=== PATIENT | male | born 1935 | race African-American/Black ===

== ENCOUNTER 2021-06-30 13:35 | Emergency (ER) | payer OTHER ==
[~2021-06-30] VITALS: Ht 182.9 cm; Wt 91.0 kg
[2021-06-30] MEDS ORDERED: SODIUM CHLORIDE 0.9% 1000ML BAG (SEPSIS BOLUS) IV ONE (14:00)
[2021-06-30 14:49] LABS: BASOPHILS % 0.3 % (0.0-2.0); EOSINOPHILS % 2.1 % (0.0-5.0); HEMATOCRIT. 33.8 % (42.0-52.0); HEMOGLOBIN. 10.8 g/dL (14.0-18.0); LYMPHOCYTES % 20.8 % (20.0-50.0); MEAN CORPUSCULAR VOLUME 75.1 fL (80.0-94.0); MEAN PLATELET VOLUME 7.7 fl (7.4-10.4); MONOCYTES % 5.5 % (2.0-8.0); NEUTROPHILS % 71.3 % (40.0-76.0); PLATELET 382 x1000/uL (130-400); RED CELL DISTRIBUTION WIDTH 13.9 % (11.6-14.6)
[2021-06-30 14:55] LABS: CHLORIDE 108 mEq/L (98-107)
[2021-06-30 14:59] LABS: ETHANOL BLOOD < 10 mg/dL
[2021-06-30] MEDS ORDERED: CEFTRIAXONE 1 G PREMIX 50 ML IV ONE (16:30)
[2021-06-30 18:54] LABS: CLARITY URINE CLEAR (CLEAR); COLOR URINE YELLOW (YELLOW); KETONES URINE NEGATIVE (NEGATIVE); LEUKOCYTE ESTERASE URINE NEGATIVE (NEGATIVE); NITRITE URINE NEGATIVE (NEGATIVE); OCCULT BLOOD URINE NEGATIVE (NEGATIVE); PH URINE 5.5 (4.5-8.0); PROTEIN URINE NEGATIVE (NEGATIVE); SPECIFIC GRAVITY URINE 1.019 (1.005-1.030)
[2021-06-30 19:20] LABS: *AMPHETAMINES SCREEN URINE NEGATIVE (NEGATIVE); *BARBITURATES SCREEN URINE NEGATIVE (NEGATIVE); *BENZODIAZEPINES SCREEN URINE NEGATIVE (NEGATIVE); *COCAINE SCREEN URINE NEGATIVE (NEGATIVE); METHADONE URINE SCREEN NEGATIVE (NEGATIVE)
[2021-06-30 19:21] LABS: CANNABINOID URINE SCREEN NEGATIVE (NEGATIVE); OPIATES URINE SCREEN NEGATIVE (NEGATIVE); PHENCYCLIDINE URINE SCREEN NEGATIVE (NEGATIVE)
[2021-06-30 20:10] VITALS: BP 132/69
== END 2021-06-30 20:25 | disposition short-term general hospital (02) ==
LOC: ER 14:02
DX: A41.9 Sepsis, unspecified organism (principal); R65.20 Severe sepsis without septic shock; T40.2X1A Poisoning by other opioids, accidental (unintentional), initial encounter; E11.9 Type 2 diabetes mellitus without complications; I10 Essential (primary) hypertension; R41.82 Altered mental status, unspecified; Z20.822 Contact with and (suspected) exposure to COVID-19; Y92.9 Unspecified place or not applicable
CPT/HCPCS: 36415; 70450; 71045; 80053; 80305; 80320; 81003; 83605; 84145; 84484; 85025; 87040; 87086; 87426; 93005; 96361; 96365; 96366; 99291; J0696; J7030; G0480

== ENCOUNTER 2024-03-09 08:41 | Inpatient (IN) | payer OTHER ==
[~2024-03-09] VITALS: Ht 175.3 cm; Wt 67.1 kg
[2024-03-09 09:05] VITALS: PULSE 106; RESP 20; O2SAT 94
[2024-03-09] MEDS: ALBUTEROL (0.083%) 2.5MG/3ML NEB HHN SCH (09:05)
[2024-03-09 09:15] LABS: BASOPHILS % 0.5 % (0.0-2.0); DIFFERENTIAL COMMENT 0; EOSINOPHILS % 2.1 % (0.0-5.0); HEMATOCRIT. 38.4 % (42.0-52.0); HEMOGLOBIN. 12.4 g/dL (14.0-18.0); LYMPHOCYTES % 47.7 % (20.0-50.0); MEAN CORPUSCULAR HEMOGLOBIN 24.2 pg (28.0-32.0); MEAN CORPUSCULAR HGB CONC 32.2 g/dL (31.0-37.0); MEAN CORPUSCULAR VOLUME 75.1 fL (80.0-94.0); MEAN PLATELET VOLUME 8.6 fl (7.4-10.4); MONOCYTES % 7.1 % (2.0-8.0); NEUTROPHILS % 42.6 % (40.0-76.0); PLATELET 210 x1000/uL (130-400); RED CELL DISTRIBUTION WIDTH 14.7 % (11.6-14.6); WHITE BLOOD COUNT 5.2 x1000/uL (4.5-11.0)
[2024-03-09] MEDS: METHYLPREDNISOLONE SOD SUCC 125MG/2ML (ACT-O-VIAL) IV STA (09:16)
[2024-03-09] MEDS: MAGNESIUM 2 G PREMIX 50 ML IV ONE (09:16)
[2024-03-09 09:25] LABS: PARTIAL THROMBOPLASTIN TIME 27.8 sec (23.4-31.0); PROTHROMBIN TIME 11.1 sec (9.6-11.0)
[2024-03-09 10:02] LABS: TROPONIN I HIGH SENSITIVITY 96 ng/L (3.0-53)
[2024-03-09 10:38] LABS: CHLORIDE 108 mEq/L (98-107); POTASSIUM 3.7 mEq/L (3.5-5.1); SODIUM 141 mEq/L (136-145)
[2024-03-09 10:39] LABS: CARBON DIOXIDE 22 mEq/L (21-32)
[2024-03-09 10:44] LABS: GLUCOSE 124 mg/dL (70-105); UREA NITROGEN BLOOD 18 mg/dL (9-23)
[2024-03-09 10:46] LABS: ALANINE AMINOTRANSFERASE 43 IU/L (10-49); ASPARTATE AMINOTRANSFERASE 47 IU/L (<34); BILIRUBIN TOTAL 0.6 mg/dL (0.1-1.0); PROTEIN TOTAL 7.1 g/dL (6.0-8.3)
[2024-03-09 11:02] LABS: CALCIUM 10.9 mg/dL (8.7-10.4)
[2024-03-09] MEDS: ENOXAPARIN 60MG/0.6ML SYR SUBCUT SCH (11:45)
[2024-03-09] MEDS: ASPIRIN 325MG EC TABLET PO NR (11:47)
[2024-03-09] MEDS: CALCIUM GLUCONATE 1GM PREMIX 50 ML IV NR (11:49)
[2024-03-09] MEDS: IPRATROPIUM BROMIDE (0.02%) 0.5MG/2.5ML NEB HHN STA (12:00)
[2024-03-09 14:30] VITALS: BP 104/68; PULSE 71; RESP 18; TEMP 97.5
[2024-03-09 16:30] VITALS: BP 104/68; PULSE 71; RESP 18; TEMP 97.5
[2024-03-09 20:00] VITALS: BP 136/81; PULSE 100; RESP 18; TEMP 97.9
[2024-03-09] MEDS ORDERED: ACETAMINOPHEN 325MG TABLET PO PRN (20:00)
[2024-03-09] MEDS ORDERED: IPRATROPIUM/ALBUTEROL 0.5-3(2.5)MG/3ML NEB HHN PRN (20:00)
[2024-03-09] MEDS: BLOOD SUGAR DIAGNOSTIC STRIP TEST SCH (21:03)
[2024-03-09] MEDS: ATORVASTATIN CALCIUM 40MG TABLET PO SCH (21:05)
[2024-03-09] MEDS: INSULIN LISPRO 100 UNITS/ML SUBCUT SCH (21:06)
[2024-03-10] VITALS (9 sets, daily range): BP systolic 117–140; BP diastolic 77–99; PULSE 70–104; RESP 16–35; TEMP 96.3–97.8
[2024-03-10] MEDS: LOSARTAN 50 MG TABLET PO SCH (06:28)
[2024-03-10 06:35] LABS: BASOPHILS % 0.1 % (0.0-2.0); DIFFERENTIAL COMMENT 0; HEMATOCRIT. 34.4 % (42.0-52.0); HEMOGLOBIN. 11.1 g/dL (14.0-18.0); LYMPHOCYTES % 9.1 % (20.0-50.0); MEAN CORPUSCULAR HGB CONC 32.4 g/dL (31.0-37.0); MEAN CORPUSCULAR VOLUME 74.1 fL (80.0-94.0); MEAN PLATELET VOLUME 9.5 fl (7.4-10.4); NEUTROPHILS % 82.8 % (40.0-76.0); PLATELET 202 x1000/uL (130-400); RED BLOOD CELL COUNT 4.64 mill/uL (4.7-6.1); RED CELL DISTRIBUTION WIDTH 14.5 % (11.6-14.6)
[2024-03-10 07:06] LABS: CARBON DIOXIDE 21 mEq/L (21-32); CHLORIDE 107 mEq/L (98-107); POTASSIUM 4.6 mEq/L (3.5-5.1); SODIUM 137 mEq/L (136-145)
[2024-03-10 07:07] LABS: CALCIUM 10.5 mg/dL (8.7-10.4)
[2024-03-10 07:12] LABS: CREATININE 1.1 mg/dL (0.6-1.3); GLUCOSE 118 mg/dL (70-105); TRIGLYCERIDE 55 mg/dL (0-150); UREA NITROGEN BLOOD 25 mg/dL (9-23)
[2024-03-10 07:13] LABS: CHOLESTEROL 112 mg/dL (<200); LDL CHOLESTEROL 71 mg/dL (5-100)
[2024-03-10 07:14] LABS: HDL CHOLESTEROL 41 mg/dL (>55)
[2024-03-10 08:22] LABS: TROPONIN I HIGH SENSITIVITY 379 ng/L (3.0-53)
[2024-03-10] MEDS: ASPIRIN 81MG TABLET PO SCH (08:28)
[2024-03-10] MEDS: ENOXAPARIN 40MG/0.4ML SYR SUBCUT SCH (08:32)
[2024-03-10] MEDS: METOPROLOL TARTRATE 50MG TABLET PO SCH (08:33)
[2024-03-10] MEDS: ISOSORBIDE MONONITRATE 30MG TABLET SR 24HR PO SCH (08:33)
[2024-03-10] MEDS: LACTULOSE 20G/30ML UDC PO NR (14:37)
[2024-03-10] MEDS ORDERED: MAGNESIUM/ALUMINUM HYDROXIDE/SIMETHICONE 30ML UDC PO PRN (17:30)
[2024-03-10] MEDS ORDERED: ONDANSETRON HCL 4MG/2ML INJ IV PRN (17:30)
[2024-03-10] MEDS ORDERED: CLONIDINE 0.1MG TABLET PO PRN (17:30)
[2024-03-10] MEDS ORDERED: HYDROCODONE/ACETAMINOPHEN 5/325MG TABLET PO PRN (17:30)
[2024-03-10] MEDS ORDERED: NALOXONE HCL 0.4MG/ML VIAL IV PRN (17:30)
[2024-03-10] MEDS ORDERED: SENNOSIDES/DOCUSATE SOD 8.6/50MG TABLET PO PRN (21:00)
[2024-03-10] MEDS: IPRATROPIUM/ALBUTEROL 0.5-3(2.5)MG/3ML NEB HHN PRN (21:50)
[2024-03-10 22:04] LABS: BG BASE EXCESS -10.4 mmol/L (-2.0-2.0); BG CARBOXYHEMOGLOBIN 0.3 % (0.5-1.5); BG DEOXYHEMOGLOBIN 17.4 % (0.0-5.0); BG FRACTION INSPIRED OXYGEN 100; BG HCO3 ACT 17.2 mmol/L (22.0-26.0); BG METHEMOGLOBIN 0.3 % (0.0-1.5); BG OXYGEN SATURATION 82.5 % (92.0-98.5); BG PCO2 44.3 mmHg (35.0-45.0); BG PH 7.207 (7.350-7.450); BG PO2 57.4 mmHg (75.0-100.0); BG SAMPLE SITE RIGHT BRACHIAL; BG TOTAL HEMOGLOBIN 12.7 g/dL (12.0-18.0); BG VENT MODE MASK - NRB
[2024-03-10] MEDS: FUROSEMIDE 40MG/4ML VIAL IVP NR (23:10)
[2024-03-10] MEDS ORDERED: IPRATROPIUM/ALBUTEROL 0.5-3(2.5)MG/3ML NEB HHN PRN (23:15)
[2024-03-10 23:49] LABS: BASOPHILS % 0.3 % (0.0-2.0); DIFFERENTIAL COMMENT 0; EOSINOPHILS % 0.3 % (0.0-5.0); HEMATOCRIT. 39.4 % (42.0-52.0); LYMPHOCYTES % 16.1 % (20.0-50.0); MEAN CORPUSCULAR HEMOGLOBIN 24.3 pg (28.0-32.0); MEAN CORPUSCULAR HGB CONC 30.5 g/dL (31.0-37.0); MEAN CORPUSCULAR VOLUME 79.7 fL (80.0-94.0); MEAN PLATELET VOLUME 9.3 fl (7.4-10.4); MONOCYTES % 6.1 % (2.0-8.0); NEUTROPHILS % 77.2 % (40.0-76.0); PLATELET 224 x1000/uL (130-400); RED BLOOD CELL COUNT 4.94 mill/uL (4.7-6.1); RED CELL DISTRIBUTION WIDTH 15.1 % (11.6-14.6); WHITE BLOOD COUNT 9.2 x1000/uL (4.5-11.0)
[2024-03-11] VITALS (59 sets, daily range): BP systolic 82–153; BP diastolic 62–121; PULSE 68–105; RESP 10–32; TEMP 96.7–98.7; O2SAT 100
[2024-03-11] LABS: CLARITY URINE CLEAR (CLEAR); COLOR URINE DARK YELLOW (YELLOW); GLUCOSE URINE NEGATIVE (NEGATIVE); KETONES URINE TRACE (NEGATIVE); LEUKOCYTE ESTERASE URINE NEGATIVE (NEGATIVE); NITRITE URINE NEGATIVE (NEGATIVE); OCCULT BLOOD URINE NEGATIVE (NEGATIVE); PH URINE 5.5 (4.5-8.0); PROTEIN URINE NEGATIVE (NEGATIVE); SPECIFIC GRAVITY URINE 1.035 (1.005-1.030)
[2024-03-11 00:02] LABS: CARBON DIOXIDE 16 mEq/L (21-32)
[2024-03-11 00:07] LABS: CREATININE 1.4 mg/dL (0.6-1.3); GLUCOSE 124 mg/dL (70-105); UREA NITROGEN BLOOD 24 mg/dL (9-23)
[2024-03-11 00:09] LABS: PHOSPHORUS 4.3 mg/dL (2.5-4.9)
[2024-03-11 00:14] LABS: BG BASE EXCESS -6.1 mmol/L (-2.0-2.0); BG CARBOXYHEMOGLOBIN 0.2 % (0.5-1.5); BG DEOXYHEMOGLOBIN 0.5 % (0.0-5.0); BG FRACTION INSPIRED OXYGEN 100; BG HCO3 ACT 19.5 mmol/L (22.0-26.0); BG METHEMOGLOBIN 0.4 % (0.0-1.5); BG OXYGEN SATURATION 99.5 % (92.0-98.5); BG OXYHEMOGLOBIN 98.9 % (94.0-97.0); BG PCO2 38.8 mmHg (35.0-45.0); BG PH 7.319 (7.350-7.450); BG PO2 201.6 mmHg (75.0-100.0); BG SAMPLE SITE RIGHT BRACHIAL; BG TOTAL HEMOGLOBIN 12.7 g/dL (12.0-18.0); BG TOTAL RESPIRATORY RATE 35 b/min; BG VENT MODE MASK - BIPAP
[2024-03-11 00:44] LABS: *AMPHETAMINES SCREEN URINE NEGATIVE (NEGATIVE); *BARBITURATES SCREEN URINE NEGATIVE (NEGATIVE); *BENZODIAZEPINES SCREEN URINE NEGATIVE (NEGATIVE)
[2024-03-11 00:45] LABS: *COCAINE SCREEN URINE NEGATIVE (NEGATIVE); CANNABINOID URINE SCREEN NEGATIVE (NEGATIVE); ECSTASY MDMA SCREEN URINE NEGATIVE (NEGATIVE); METHADONE URINE SCREEN NEGATIVE (NEGATIVE); OPIATES URINE SCREEN PRESUMPTIVE POSITIVE (NEGATIVE); PHENCYCLIDINE URINE SCREEN NEGATIVE (NEGATIVE)
[2024-03-11 00:57] LABS: CHLORIDE 109 mEq/L (98-107); POTASSIUM 4.5 mEq/L (3.5-5.1); SODIUM 136 mEq/L (136-145)
[2024-03-11 01:11] LABS: LACTIC ACID 2.7 mmol/L (0.4-2.0)
[2024-03-11] MEDS: IPRATROPIUM/ALBUTEROL 0.5-3(2.5)MG/3ML NEB HHN SCH ×2 (04:54→08:29)
[2024-03-11] MEDS: DEXTROSE 50% WATER 50ML SYRINGE IV PRN (05:45)
[2024-03-11] MEDS: OMEPRAZOLE 20MG CAPSULE EXTENDED RELEASE PO SCH (06:30)
[2024-03-11 06:56] LABS: AMMONIA 20 uMol/L (<32); BASOPHILS % 0.1 % (0.0-2.0); CHLORIDE 107 mEq/L (98-107); DIFFERENTIAL COMMENT 0; HEMATOCRIT. 36.8 % (42.0-52.0); HEMOGLOBIN. 11.7 g/dL (14.0-18.0); LYMPHOCYTES % 12.4 % (20.0-50.0); MEAN CORPUSCULAR HEMOGLOBIN 24.2 pg (28.0-32.0); MEAN CORPUSCULAR HGB CONC 31.9 g/dL (31.0-37.0); MEAN CORPUSCULAR VOLUME 75.8 fL (80.0-94.0); MEAN PLATELET VOLUME 9.5 fl (7.4-10.4); MONOCYTES % 7.6 % (2.0-8.0); NEUTROPHILS % 79.9 % (40.0-76.0); PLATELET 223 x1000/uL (130-400); POTASSIUM 5.4 mEq/L (3.5-5.1); RED BLOOD CELL COUNT 4.86 mill/uL (4.7-6.1); RED CELL DISTRIBUTION WIDTH 14.7 % (11.6-14.6); SODIUM 138 mEq/L (136-145); WHITE BLOOD COUNT 8.1 x1000/uL (4.5-11.0)
[2024-03-11 06:57] LABS: CARBON DIOXIDE 24 mEq/L (21-32)
[2024-03-11 07:02] LABS: CREATININE 1.3 mg/dL (0.6-1.3); TRIGLYCERIDE 51 mg/dL (0-150); UREA NITROGEN BLOOD 35 mg/dL (9-23)
[2024-03-11 07:03] LABS: LDL CHOLESTEROL 64 mg/dL (5-100)
[2024-03-11 07:04] LABS: ALANINE AMINOTRANSFERASE 151 IU/L (10-49); ALBUMIN 4.1 g/dL (3.2-4.8); ASPARTATE AMINOTRANSFERASE 149 IU/L (<34); BILIRUBIN DIRECT 0.2 mg/dL (<=3.0); BILIRUBIN TOTAL 0.5 mg/dL (0.1-1.0); CHOLESTEROL 112 mg/dL (<200); HDL CHOLESTEROL 44 mg/dL (>55); PHOSPHORUS 3.6 mg/dL (2.5-4.9); PROTEIN TOTAL 7.2 g/dL (6.0-8.3)
[2024-03-11 07:06] LABS: THYROID STIMULATING HORMONE 0.99 uIU/mL (0.55-4.78)
[2024-03-11 07:07] LABS: T4 FREE 1.07 ng/dL (0.89-1.76)
[2024-03-11 08:09] LABS: GLUCOSE 43 mg/dL (70-105)
[2024-03-11 08:10] LABS: TROPONIN I HIGH SENSITIVITY 596 ng/L (3.0-53)
[2024-03-11] MEDS ORDERED: FUROSEMIDE 40MG/4ML VIAL IVP SCH (09:00)
[2024-03-11 09:02] LABS: BG BASE EXCESS -4.6 mmol/L (-2.0-2.0); BG CARBOXYHEMOGLOBIN 0.3 % (0.5-1.5); BG DEOXYHEMOGLOBIN 0.9 % (0.0-5.0); BG FRACTION INSPIRED OXYGEN 70; BG HCO3 ACT 19.8 mmol/L (22.0-26.0); BG METHEMOGLOBIN 0.3 % (0.0-1.5); BG OXYGEN SATURATION 99.1 % (92.0-98.5); BG OXYHEMOGLOBIN 98.5 % (94.0-97.0); BG PCO2 34.3 mmHg (35.0-45.0); BG PH 7.379 (7.350-7.450); BG PO2 149.7 mmHg (75.0-100.0); BG SAMPLE SITE RIGHT BRACHIAL; BG TOTAL HEMOGLOBIN 12.7 g/dL (12.0-18.0); BG TOTAL RESPIRATORY RATE 29 b/min; BG VENT MODE MASK - BIPAP
[2024-03-11] MEDS: ISOSORB DINIT/HYDRALAZINE HCL 20/37.5MG TABLET PO SCH (10:26)
[2024-03-11] MEDS: ENOXAPARIN 80MG/0.8ML SYR SUBCUT SCH (10:26)
[2024-03-11] MEDS: FUROSEMIDE 40MG/4ML VIAL IVP SCH (14:26)
[2024-03-11 18:03] LABS: TROPONIN I HIGH SENSITIVITY 458 ng/L (3.0-53)
[2024-03-11] MEDS: BUDESONIDE 0.5MG/2ML NEB HHN SCH (20:47)
[2024-03-11] MEDS: ATORVASTATIN CALCIUM 40MG TABLET PO SCH (21:26)
[2024-03-12] VITALS (28 sets, daily range): BP systolic 93–118; BP diastolic 52–88; PULSE 70–111; RESP 11–27; TEMP 97–98.6; O2SAT 97–100
[2024-03-12 01:31] LABS: CHLORIDE 106 mEq/L (98-107); SODIUM 139 mEq/L (136-145)
[2024-03-12 01:32] LABS: CALCIUM 10.5 mg/dL (8.7-10.4); CARBON DIOXIDE 25 mEq/L (21-32)
[2024-03-12 01:37] LABS: CREATININE 1.3 mg/dL (0.6-1.3); GLUCOSE 105 mg/dL (70-105); UREA NITROGEN BLOOD 31 mg/dL (9-23)
[2024-03-12 01:39] LABS: PHOSPHORUS 2.8 mg/dL (2.5-4.9)
[2024-03-12 01:43] LABS: POTASSIUM 3.4 mEq/L (3.5-5.1)
[2024-03-12 04:46] LABS: BASOPHILS % 0.3 % (0.0-2.0); DIFFERENTIAL COMMENT 0; EOSINOPHILS % 1.9 % (0.0-5.0); HEMATOCRIT. 35.9 % (42.0-52.0); HEMOGLOBIN. 11.5 g/dL (14.0-18.0); LYMPHOCYTES % 17.1 % (20.0-50.0); MEAN CORPUSCULAR HEMOGLOBIN 24.2 pg (28.0-32.0); MEAN CORPUSCULAR HGB CONC 32.2 g/dL (31.0-37.0); MEAN CORPUSCULAR VOLUME 75.3 fL (80.0-94.0); MEAN PLATELET VOLUME 9.6 fl (7.4-10.4); MONOCYTES % 7.7 % (2.0-8.0); PLATELET 214 x1000/uL (130-400); RED BLOOD CELL COUNT 4.77 mill/uL (4.7-6.1); RED CELL DISTRIBUTION WIDTH 14.3 % (11.6-14.6); WHITE BLOOD COUNT 7.8 x1000/uL (4.5-11.0)
[2024-03-12 04:51] LABS: CHLORIDE 107 mEq/L (98-107); POTASSIUM 3.6 mEq/L (3.5-5.1); SODIUM 140 mEq/L (136-145)
[2024-03-12 04:52] LABS: CALCIUM 10.5 mg/dL (8.7-10.4); CARBON DIOXIDE 28 mEq/L (21-32)
[2024-03-12 04:57] LABS: CREATININE 1.4 mg/dL (0.6-1.3); GLUCOSE 101 mg/dL (70-105); UREA NITROGEN BLOOD 30 mg/dL (9-23)
[2024-03-12 04:59] LABS: ALANINE AMINOTRANSFERASE 200 IU/L (10-49); ASPARTATE AMINOTRANSFERASE 138 IU/L (<34); BILIRUBIN DIRECT 0.3 mg/dL (<=3.0); BILIRUBIN TOTAL 0.9 mg/dL (0.1-1.0); LACTIC ACID 2.3 mmol/L (0.4-2.0); PHOSPHORUS 2.9 mg/dL (2.5-4.9); PROTEIN TOTAL 7.1 g/dL (6.0-8.3)
[2024-03-12] MEDS: AMIODARONE HCL 200 MG TABLET PO SCH ×2 (15:17→17:34)
[2024-03-13] VITALS (13 sets, daily range): BP systolic 88–137; BP diastolic 67–80; PULSE 77–109; RESP 14–23; TEMP 97.2–98.4; O2SAT 98–99
[2024-03-13] MEDS: MIDODRINE HCL 5MG TABLET PO PRN (00:12)
[2024-03-13] MEDS ORDERED: LOSARTAN 25 MG TABLET PO SCH (07:30)
[2024-03-13] MEDS: FAMOTIDINE 20MG TABLET PO SCH (08:34)
[2024-03-13 16:45] LABS: TROPONIN I HIGH SENSITIVITY 191 ng/L (3.0-53)
== END 2024-03-13 17:30 | disposition short-term general hospital (02) | DRG 280 ==
LOC: ER 08:41 → 5WST 10:24 → EDBEDREQ 10:26 → 8WST 16:26 → MICUNO 03-11 00:01 → 5EST 03-12 02:10
PROVIDERS: ADMIT Internal Medicine; ATTEND Internal Medicine
PROC: 5A09357 Assistance with Respiratory Ventilation, Less than 24 Consecutive Hours, Continuous Positive Airway Pressure (ICD-10-PCS; principal; 2024-03-10)
DX: I21.4 Non-ST elevation (NSTEMI) myocardial infarction (principal); I50.21 Acute systolic (congestive) heart failure; J18.9 Pneumonia, unspecified organism; J96.00 Acute respiratory failure, unspecified whether with hypoxia or hypercapnia; J44.0 Chronic obstructive pulmonary disease with (acute) lower respiratory infection; E87.20 Acidosis, unspecified; E11.9 Type 2 diabetes mellitus without complications; I11.0 Hypertensive heart disease with heart failure; G51.0 Bell's palsy; I44.7 Left bundle-branch block, unspecified; Z20.822 Contact with and (suspected) exposure to COVID-19
CPT/HCPCS: 36415; 36600; 71045; 78580; 80048; 80053; 80061; 80076; 80305; 81003; 82140; 82375; 82805; 82962; 83036; 83605; 83735; 83880; 84100; 84145; 84439; 84443; 84484; 85025; 85379; 87420; 87426; 87804; 93005; 93306; 93970; 94640; 94644; 94660; 99285; C1893; J0610; J1650; J1815; J1940; J2930; J3475; J7626